=== PATIENT | female | born 1955 | race Two or more races ===

== ENCOUNTER 2020-07-21 06:06 | Day surgery (SDC) | payer OTHER ==
[~2020-07-21 06:06] MED LIST: AZOR 5-20 MG T1 EACH PO; COZAAR50 MG PO; GABAPENTIN100 M2 PO; METOPROLOL SUCC25 MG PO; SYNTHROID100 MCG PO; SYNTHROID50 MCG PO
[2020-07-22] MEDS ORDERED: NEURONTIN300 MG PO (11:14)
[2020-07-22] MEDS ORDERED: KETO10TA2 PO (11:15)
[2020-07-22] MEDS ORDERED: INTESTINEX680 M1 PO (11:15)
== END 2020-07-22 08:00 | disposition home or self-care (01) ==
LOC: CIR.AMB 06:06 → O/R 10:07 → SURH 10:07 → CIR.AMB 10:15 → SURH 16:32 → O/R 16:32 → SURH 16:32 → CIR.AMB 07-22 08:00 → SURH 07-22 12:53 → O/R 07-22 12:53
PROVIDERS: ATTEND Surgery
DX: K62.3 Rectal prolapse (principal); K64.3 Fourth degree hemorrhoids

== ENCOUNTER 2020-08-03 10:15 | Outpatient (CLI) | payer OTHER ==
[~2020-08-03 10:15] MED LIST changes: +INTESTINEX680 M1 PO; +KETO10TA2 PO; +NEURONTIN300 MG PO
== END 2020-08-03 10:20 | disposition home or self-care (01) ==
LOC: RAD 10:15
PROVIDERS: ATTEND Physical Medicine & Rehabilitation
DX: M54.2 Cervicalgia (principal)

== ENCOUNTER 2021-08-29 13:56 | Outpatient (CLI) | payer OTHER | END 2021-08-29 14:09 | disposition home or self-care (01) | LOC: RAD 13:56 | PROVIDERS: ATTEND Physical Medicine & Rehabilitation | DX: M25.762 Osteophyte, left knee (principal); M17.12 Unilateral primary osteoarthritis, left knee ==